=== PATIENT | male | born 1965 | race American Indian/Alaskan Native ===

== ENCOUNTER 2025-07-07 12:30 | Emergency (ER) | payer SELFPAY ==
[~2025-07-07] VITALS: Ht 162.6 cm; Wt 60.0 kg
[2025-07-07 12:42] LABS: BASOPHILS 1.0 % (0.2-1.2); EOSINOPHILS 3.9 % (0.8-7.0); LYMPHOCYTES 13.1 % (21.8-53.1); MCH 30.9 PG (25.7-32.2); MCHC 34.4 g/dL (32.3-36.5); MCV 89.7 fL (79.0-92.2); MONOCYTES 10.8 % (5.3-12.2); NEUTROPHILS 71.1 % (34.0-67.9); RBC 4.18 M/uL (4.63-6.08)
[2025-07-07] MEDS ORDERED: NITROGLYCERIN PACKET TOP ONE (12:45)
[2025-07-07] MEDS ORDERED: NITROGLYCERIN 0.4 MG SUBL SL PRN (12:45)
[2025-07-07] MEDS ORDERED: LIDOCAINE 5% OINTMENT TUBE TOP ONE (12:45)
[2025-07-07 13:05] LABS: ALT (SGPT) 17.0 U/L (14-59); AST (SGOT) 24.0 U/L (15-37); GLOMERULAR FILTRATION RATE,EST 65.0 mL/min (>60); PROTEIN, TOTAL 6.8 g/dL (6.4-8.2); UREA NITROGEN 13.0 mg/dL (7-18)
[2025-07-07] MEDS ORDERED: NITROGLYCERIN0.4 MG SL (14:36)
[2025-07-07 14:55] VITALS: BP 167/83
--- NOTE | 2025-07-07 18:51 | EKG ---
[facility] [address] [facility] [place] [address] Signed Normal sinus rhythm with sinus arrhythmia Voltage criteria for left ventricular hypertrophy T wave abnormality, consider anterior ischemia Prolonged QT Abnormal ECG When compared with ECG of 07-JUL-2025 12:44, (Unconfirmed) No significant change was found Confirmed by Luis Alberto Blackman DO ([id number]) on 07/07/2025 6:51:37 PM Electronically Signed By: LUIS ALBERTO BLACKMAN DO 07/07/251850 PATIENT NAME: LAMONT QIU Electrocardiogram DATE OF : 65 PHYSICIAN: LUIS ALBERTO BLACKMAN DO REPORT #: [id number] REPORT IS CONFIDENTIAL AND NOT TO BE RELEASED WITHOUT AUTHORIZATION
--- NOTE | 2025-07-07 18:51 | EKG ---
[facility] [address] [facility] [place] [address] Signed Normal sinus rhythm with sinus arrhythmia Minimal voltage criteria for LVH, may be normal variant ( Sokolow-James ) T wave abnormality, consider anterior ischemia Prolonged QT Abnormal ECG No previous ECGs available Confirmed by Luis Alberto German DO ([id number]) on 07/07/2025 6:50:54 PM Electronically Signed By: LUIS ALBERTO GERMAN DO 07/07/251850 PATIENT NAME: LAMONT QIU Electrocardiogram DATE OF : 65 PHYSICIAN: LUIS ALBERTO GERMAN DO REPORT #: [id number] REPORT IS CONFIDENTIAL AND NOT TO BE RELEASED WITHOUT AUTHORIZATION
== END 2025-07-07 14:56 | disposition home or self-care (01) ==
LOC: ED 12:30
PROVIDERS: Emergency Medicine
DX: R07.2 Precordial pain (principal); M84.48XS Pathological fracture, other site, sequela; F14.10 Cocaine abuse, uncomplicated
CPT/HCPCS: 36415; 71045; 80053; 83880; 84484; 85025; 93005; 93010; 99285